=== PATIENT | male | born 1990 | race Caucasian/White ===

== ENCOUNTER 2019-06-09 20:53 | Emergency (ER) | payer OTHER ==
[~2019-06-09] VITALS: Ht 162.6 cm; Wt 63.0 kg
[2019-06-09 22:24] LABS: ABSOLUTE NEUTROPHILS 4.9 thou/uL (1.4-8.2); BASOPHILS 0.4 % (0.0-2.0); EOSINOPHILS 1.3 % (0.0-3.0); LYMPHOCYTES 29.6 % (24.0-44.0); MONOCYTES 6.4 % (1.0-8.0); PLATELET COUNT 228 thou/uL (150-400); POLYS 62.3 % (36.0-66.0); RBC 4.49 mil/uL (4.50-6.00); RDW 13.9 % (10.5-14.5); WBC 7.8 thou/uL (4.0-11.0)
[2019-06-09 22:26] LABS: CHLORIDE 97 mmol/L (98-107); POTASSIUM 3.8 mmol/L (3.5-5.1); SODIUM 133 mmol/L (136-145)
[2019-06-09 23:07] LABS: HEMATOCRIT 39.9 % (42.0-52.0); HEMOGLOBIN 13.7 gm/dL (14.0-18.0); MCH 29.1 pg (26.0-34.0); MCV 84.7 fL (80.0-100.0)
[2019-06-09 23:10] LABS: MCHC 34.4 g/dL (28.0-37.0)
[2019-06-09 23:33] LABS: DIRECT BILIRUBIN < 0.1 mg/dL (<0.1-0.2)
[2019-06-09 23:36] LABS: ANION GAP 10 mmol/L (7-16); BUN 16 mg/dL (7-18); CO2 26 mmol/L (21-32)
[2019-06-09 23:37] LABS: GLUCOSE 118 mg/dL (74-106); TOTAL BILIRUBIN 0.8 mg/dL (<0.1-1.0)
[2019-06-09 23:38] LABS: CALCIUM 8.9 mg/dL (8.5-10.1)
[2019-06-09 23:39] LABS: ALBUMIN 4.7 g/dL (3.4-5.0); SGPT 34 U/L (30-65)
[2019-06-09 23:40] LABS: LIPASE 208 U/L (73-393)
[2019-06-10 00:12] LABS: SGOT 27 U/L (15-37)
[2019-06-10] MEDS ORDERED: ZOFRAN ODT4 MG PO (01:18)
[2019-06-10] MEDS ORDERED: NORCO 5-325 TA1 EAC1 PO (01:18)
[2019-06-10 01:30] VITALS: BP 132/81
== END 2019-06-10 01:30 | disposition home or self-care (01) ==
LOC: ER 20:53
PROVIDERS: Emergency Medicine
DX: R10.13 Epigastric pain (principal); R11.2 Nausea with vomiting, unspecified; R42 Dizziness and giddiness; E78.5 Hyperlipidemia, unspecified

== ENCOUNTER 2019-09-21 23:33 | Emergency (ER) | payer OTHER ==
[~2019-09-21] VITALS: Ht 162.6 cm; Wt 63.0 kg
[~2019-09-21 23:33] MED LIST: NORCO 5-325 TA1 EAC1 PO; ZOFRAN ODT4 MG PO
[2019-09-21] MEDS ORDERED: CALCIUM CARBON500 MG PO (23:58)
[2019-09-21] MEDS ORDERED: FENOFIBRATE150 MG PO (23:58)
[2019-09-22 00:44] LABS: HEMATOCRIT 34.6 % (42.0-52.0); HEMOGLOBIN 16.8 gm/dL (14.0-18.0); MCH 41.1 pg (26.0-34.0); MCHC 48.5 g/dL (28.0-37.0); MCV 84.6 fL (80.0-100.0); RBC 4.09 mil/uL (4.50-6.00); RDW 14.1 % (10.5-14.5); WBC 5.5 thou/uL (4.0-11.0)
[2019-09-22 00:59] LABS: ANION GAP 12 mmol/L (7-16); CHLORIDE 99 mmol/L (98-107); CO2 20 mmol/L (21-32); POTASSIUM 4.4 mmol/L (3.5-5.1); SODIUM 131 mmol/L (136-145)
[2019-09-22 01:35] LABS: URINE BILIRUBIN NEGATIVE (Negative); URINE BLOOD NEGATIVE (Negative); URINE CLARITY CLEAR; URINE COLOR YELLOW; URINE GLUCOSE-RANDOM* NEGATIVE (Negative); URINE KETONES NEGATIVE (Negative); URINE LEUKOCYTES-REFLEX TRACE (Negative); URINE NITRITE-REFLEX NEGATIVE (Negative); URINE PROTEIN (DIPSTICK) NEGATIVE (Negative); URINE UROBILINOGEN 0.2 E.U./dl (0.2-1.0)
[2019-09-22 02:39] LABS: TROPONIN-I <0.06 ng/mL (<0.06)
[2019-09-22 02:43] LABS: BUN 12 mg/dL (7-18)
[2019-09-22 02:44] LABS: ALBUMIN 2.6 g/dL (3.4-5.0); GLUCOSE 175 mg/dL (74-106)
[2019-09-22 04:19] VITALS: BP 120/72
[2019-09-22 05:24] LABS: CREATININE 0.8 mg/dL (0.7-1.3)
[2019-09-22 05:25] LABS: CALCIUM 7.1 mg/dL (8.5-10.1); SGOT 19 U/L (15-37); SGPT 24 U/L (30-65); TOTAL PROTEIN 5.2 g/dL (6.4-8.2)
--- NOTE | 2019-09-22 08:48 | EKG ---
[facility] [place] [address] ELECTROCARDIOGRAM REPORT Name: MARVINKHADIJAH Room #: DEP [facility]..#: [id number] Admission: 09/21/19 Attend Phys: Discharge: 09/22/19 Date of : 89 Report #: [id number] THIS REPORT FOR: cc: FRANCO - Precious family physician/PCP FRANCO - Precious family physician/PCP Murali Mera MD ~ THIS REPORT FOR: //name// [facility] ED Test Date: 2019-09-22 Test Time: 00:45:06 Pat Name: KHADIJAH WONG Department: Room: Gender: [employer]: [facility] : 1990 Requested By: Jose Luis Garces Order Number: [id number] MD: Murali Mera Measurements Intervals [place] Rate: 82 P: 45 MI: 176 QRS: 16 QRSD: 85 T: 4 QT: 361 QTc: 422 Interpretive Statements Sinus rhythm No previous ECG available for comparison Electronically Signed On 09-22-2019 8:47:37 CDT by Murali Mera [email or web address] <ELECTRONICALLY SIGNED> By: Murali Mera MD 09/22/19 0847 0045 0045 Murali Mera MD /VICTORIA
== END 2019-09-22 04:23 | disposition home or self-care (01) ==
LOC: ER 23:33
PROVIDERS: Emergency Medicine
DX: R42 Dizziness and giddiness (principal); R51 Headache; R11.2 Nausea with vomiting, unspecified; E78.5 Hyperlipidemia, unspecified; Z79.899 Other long term (current) drug therapy